=== PATIENT | female | born 1995 | race Caucasian/White ===

== ENCOUNTER 2016-05-16 16:37 | Emergency (ER) | payer OTHER ==
--- NOTE | 2016-05-16 17:46 | ED CLINICAL REPORT ---
Clinical Report - Physicians/Mid Levels [facility] [address] [place] [address] 05/16/2016 16:38 Patient: REESE GRIMES Time Seen: 1700. Arrived- By private vehicle. Historian- patient. HISTORY OF PRESENT ILLNESS Chief Complaint: SORE THROAT. This started just prior to arrival and is still present. Pain described as mild. The patient has had a sore throat. (Sensation of foreign body sore throat over the last few hours, no fevers. No sick contacts, no cough. Has not ate anything sharp, bony in nature, this does not relate to any recent food intake.). REVIEW OF SYSTEMS No fever, cough, difficulty breathing, nausea or diarrhea. No headache or joint pain. All systems otherwise negative, except as recorded above. PAST HISTORY Problems: Anxiety Reaction. Abdominal Pain. LNMP - Last Normal Menstrual Period. Additional Surgeries: no known surgeries. Medications: CloNIDine HCl Oral. Sertraline HCl Oral. Allergies: No Known Drug Allergy. SOCIAL HISTORY Never smoker. Alcohol use. No drug use. ADDITIONAL NOTES The nursing notes have been reviewed. PHYSICAL EXAM Vital Signs: 05/16/2016 17:00 BP: 127/74. HR: 90. RR: 16. O2 saturation: 100%. Temp: 98.9 F. Pain level now: 0/10. Appearance: Alert. Head: Normal external inspection. No mandibular swelling or maxillary swelling. Eyes: Conjunctivae and eyelids normal. ENT: Ears normal. Nose normal. Pharynx normal. Lips normal. No trismus present. Uvula midline. No pharyngeal erythema, tonsillar exudate, peritonsillar mass, muffled or hoarse voice or drooling. No dental decay or purulent nasal discharge. Neck: Trachea midline. No adenopathy. No lymphadenopathy or thyromegaly. CVS: Normal heart rate and rhythm. Heart sounds normal. No cardiac murmur or extra heart sounds. Respiratory: No respiratory distress. Breath sounds normal. Abdomen: Soft. No organomegaly. Skin: Normal skin color. No rash. LABS, X-RAYS, AND EKG Laboratory Tests: Culture, Strep Screen: (BIMAL: 05/16/2016 17:10) ( MsgRcvd 05/16/2016 17:29) Final results Test Result Flag Units (Reference) RAPID STREP SCREEN - THROAT DATE: 05/16/16 NEGATIVE SCREEN: RAPID STREP SCREEN NEGATIVE; CONFIRMATION TO FOLLOW . PROGRESS AND PROCEDURES Course of Care: Patient tolerating by mouth fluid in the ER. She is very stable, afebrile, no lymphadenopathy, no recent sick contacts, rapid strep negative , no h/o mono. Pt with sx over today only. Lungs clear. Patient is stable. Physical exam findings are improved. Symptoms better. Patient/family counseled. Disposition: Discharged. CLINICAL IMPRESSION Acute pharyngitis INSTRUCTIONS Drink plenty of fluids. (salt water rinses/ gargles culture pending for further if any STREP to grow, however rapid STREP negative [facility] candace: ). OTC Medications: Take acetaminophen (Tylenol, Datril, etc.) and ibuprofen (Advil, Nuprin, etc.) according to label instructions. Available over the counter. Follow-up: Follow up with your doctor in three days. (Electronically signed by Sujey Charles P.A.-C 05/16/2016 17:57)
--- NOTE | 2016-05-16 17:46 | ED CLINICAL REPORT ---
Clinical Report - Physicians/Mid Levels [facility] [address] [place] [address] 05/16/2016 16:38 Patient: REESE GRIMES Time Seen: 1700. Arrived- By private vehicle. Historian- patient. HISTORY OF PRESENT ILLNESS Chief Complaint: SORE THROAT. This started just prior to arrival and is still present. Pain described as mild. The patient has had a sore throat. (Sensation of foreign body sore throat over the last few hours, no fevers. No sick contacts, no cough. Has not ate anything sharp, bony in nature, this does not relate to any recent food intake.). REVIEW OF SYSTEMS No fever, cough, difficulty breathing, nausea or diarrhea. No headache or joint pain. All systems otherwise negative, except as recorded above. PAST HISTORY Problems: Anxiety Reaction. Abdominal Pain. LNMP - Last Normal Menstrual Period. Additional Surgeries: no known surgeries. Medications: CloNIDine HCl Oral. Sertraline HCl Oral. Allergies: No Known Drug Allergy. SOCIAL HISTORY Never smoker. Alcohol use. No drug use. ADDITIONAL NOTES The nursing notes have been reviewed. PHYSICAL EXAM Vital Signs: 05/16/2016 17:00 BP: 127/74. HR: 90. RR: 16. O2 saturation: 100%. Temp: 98.9 F. Pain level now: 0/10. Appearance: Alert. Head: Normal external inspection. No mandibular swelling or maxillary swelling. Eyes: Conjunctivae and eyelids normal. ENT: Ears normal. Nose normal. Pharynx normal. Lips normal. No trismus present. Uvula midline. No pharyngeal erythema, tonsillar exudate, peritonsillar mass, muffled or hoarse voice or drooling. No dental decay or purulent nasal discharge. Neck: Trachea midline. No adenopathy. No lymphadenopathy or thyromegaly. CVS: Normal heart rate and rhythm. Heart sounds normal. No cardiac murmur or extra heart sounds. Respiratory: No respiratory distress. Breath sounds normal. Abdomen: Soft. No organomegaly. Skin: Normal skin color. No rash. LABS, X-RAYS, AND EKG Laboratory Tests: Culture, Strep Screen: (BIMAL: 05/16/2016 17:10) ( MsgRcvd 05/16/2016 17:29) Final results Test Result Flag Units (Reference) RAPID STREP SCREEN - THROAT DATE: 05/16/16 NEGATIVE SCREEN: RAPID STREP SCREEN NEGATIVE; CONFIRMATION TO FOLLOW . PROGRESS AND PROCEDURES Course of Care: Patient tolerating by mouth fluid in the ER. She is very stable, afebrile, no lymphadenopathy, no recent sick contacts, rapid strep negative , no h/o mono. Pt with sx over today only. Lungs clear. Patient is stable. Physical exam findings are improved. Symptoms better. Patient/family counseled. Disposition: Discharged. CLINICAL IMPRESSION Acute pharyngitis INSTRUCTIONS Drink plenty of fluids. (salt water rinses/ gargles culture pending for further if any STREP to grow, however rapid STREP negative [facility] candace: ). OTC Medications: Take acetaminophen (Tylenol, Datril, etc.) and ibuprofen (Advil, Nuprin, etc.) according to label instructions. Available over the counter. Follow-up: Follow up with your doctor in three days. (Electronically signed by Sujey Charles P.A.-C 05/16/2016 17:57)
--- NOTE | 2016-05-16 17:46 | ED ORDER SUMMARY ---
..... Patient: REESE GRIMES OrderSheet [facility] VisitID: [id number] [address] [place] [address] 21y, F Registration Date/Time: 05/16/2016 ORDER SHEET Weight: 56.6 kg (stated) Allergies: No Known Drug Allergy GENERAL ORDERS: Culture, Strep Screen Urgent (17:14 05/16/2016 Jeane KinseyAMarcial-C) ([facility] 17:16 ANDREuller) (17:21 Lona R.N.) MEDICATION ORDERS: Dexamethasone PO 8 mg (NOW) (17:38 05/16/2016 Jeane Alexander-Ramya) (17:59 Lona R.N.) IV FLUIDS: ORDER SHEET NOTES: [Electronically signed by Sujey Charles P.A.-C (17:57 05/16/2016)] [Electronically signed by Yuly Gutierrez R.N. (18:05 05/16/2016)] [Electronically locked/signed by Yuly Gutierrez R.N. (18:05 05/16/2016)]
--- NOTE | 2016-05-16 17:46 | ED ORDER SUMMARY ---
..... Patient: REESE GRIMES OrderSheet [facility] VisitID: [id number] [address] [place] [address] 21y, F Registration Date/Time: 05/16/2016 ORDER SHEET Weight: 56.6 kg (stated) Allergies: No Known Drug Allergy GENERAL ORDERS: Culture, Strep Screen Urgent (17:14 05/16/2016 Jeane KinseyAMarcial-C) ([facility] 17:16 ANDREuller) (17:21 Lona R.N.) MEDICATION ORDERS: Dexamethasone PO 8 mg (NOW) (17:38 05/16/2016 Jeane Alexander-Ramya) (17:59 Lona R.N.) IV FLUIDS: ORDER SHEET NOTES: [Electronically signed by Sujey Charles P.A.-C (17:57 05/16/2016)] [Electronically signed by Yuly Gutierrez R.N. (18:05 05/16/2016)] [Electronically locked/signed by Yuly Gutierrez R.N. (18:05 05/16/2016)]
--- NOTE | 2016-05-16 17:46 | ED NURSING NOTES ---
Clinical Report - Nurses [facility] [address] [place] [address] 05/16/2016 16:38 Patient: REESE GRIMES TRIAGE Triage time 17:00. Acuity: LEVEL 4. Chief Complaint: FORIEGN BODY SENSATION IN THROAT and (Onset a few hours ago. Denies URI sx, no fever. No hoarse voice.). 17:05 05/16/16. SEPSIS SCREEN: Sepsis Screen. Negative (no infection suspected/documented). YAHIR COMA SCORE: [place] Coma Scale: 15- eyes open spontaneously (4); best verbal response- oriented x 4 (5); best motor response- obeys commands (6). --17:05 Ky Sommer R.N. 17:00 05/16/16. BP: 127/74. HR: 90. RR: 16. O2 saturation: 100% on room air. Temp: 98.9 F (oral). Pain level now: 0/10. --17:05 Ky Sommer R.N. Weight: 56.6 kg stated. Height/Length: 64 inches Per Patient. BMI: 21.4. --17:03 Ky Sommer R.N. Medications Sertraline HCl Oral. --17:02 Ky Sommer R.N. CloNIDine HCl Oral. --17:02 Ky Sommer R.N. Allergies No Known Drug Allergy. --17:02 Ky Sommer R.N. History Arrived by private vehicle. Historian: patient. This started today. SOCIAL HX: Never smoker. Occasional alcohol use. No drug use. ABUSE ASSESSMENT: No report of abuse. --17:05 Ky Sommer R.N. PROBLEMS: Anxiety Reaction. Abdominal Pain. LNMP - Last Normal Menstrual Period. --17:02 Ky Sommer R.N. ADDITIONAL SURGERIES: no known surgeries. Interventions ID band on patient. To treatment room. --17:05 Ky Sommer R.N. PHYSICAL ASSESSMENT 17:09 05/16/16. Ambulatory to room. GENERAL / NEURO / PSYCH: Alert. Oriented X 4. Appears in no acute distress. HEENT: Pupils equal, round and reactive to light. Pharynx within normal limits. Voice within normal limits. ( enlarged neck glands, able to handle her secretions, able to swallow food & fluids.). Mouth within normal limits upon inspection. No dental injury noted. Mucous membranes are pink. RESPIRATORY: Respirations not labored. CVS: Capillary refill less than 2 seconds. SKIN: Skin is warm and dry. Normal skin turgor. --17:09 Ky Sommer R.N. NURSING PROGRESS NOTES 17:05/16/16. Patient gowned. Head of bed elevated. Reassurance given. Two patient identifiers checked. Call light placed in reach. Bed placed in lowest position. Brakes of bed on. Patient ready for evaluation- chart flagged. --17:09 Ky Sommer R.N. 17:59 05/16/2016 Dexamethasone (Dexamethasone) PO Tablets 8 mg given. Allergies verified and confirmed 5 rights. --17:59 Ky Sommer R.N. DISPOSITION / DISCHARGE 18:05/16/16. Departure time: 18:May 16 2016. Condition at departure: improved and stable. The goals identified in the patient's plan of care were met. No learning barriers present. Reviewed referral to a primary care physician for followup. Patient verbalized understanding. Written instructions provided in Estonian. The patient was discharged home and unaccompanied at time of discharge. She left the Emergency Department ambulatory and via private vehicle. Patient driving. --18:05 Yuly Gutierrez R.N. 18:05 05/16/16. BP: 119/68. HR: 77. RR: 18. O2 saturation: 100%. Temp: 98.1 F. Pain level now 4/10. --18:05 Yuly Gutierrez R.N. Locked/Released at 05/16/2016 18:06 by Yuly Gutierrez R.N.
--- NOTE | 2016-05-16 18:06 | ED MAR SUMMARY ---
..... Medication Administration Record [facility] [address] [place] [address] Patient: REESE GRIMES Visit ID: [id number] 21y, F Weight: 56.6 kg Height/Length: 64 in BMI: 21.4 ALLERGIES: No Known Drug Allergy Given 17:59 05/16/2016 Ky Sommer R.N. Medication Administered: DEXAMETHASONE [PO] (DEXAMETHASONE), Dose: 8 mg Tablets PO. Medication Ordered: Dexamethasone PO 8 mg (NOW).
--- NOTE | 2016-05-16 18:06 | ED MED RECONCILIATION SUMMARY ---
Patient: REESE GRIMES Medication Reconciliation Report [facility] VisitID: [id number] [address] [place] [address] 21y, F Registration Date/Time: 05/16/2016 Weight: 56.6 kg Height/Length: 64 in. BMI: 21.4 ALLERGIES: No Known Drug Allergy The patient's Home Medications are listed below: THE FOLLOWING MEDICATIONS NEED TO BE RECONCILED: CloNIDine HCl Oral Sertraline HCl Oral The source(s) of the original Home Medication information: Not obtained. The following Medications were given to the patient in the Emergency Department: Dexamethasone [PO] PO 8 mg, administered: 05/16/2016 5:59:00 PM The following Medications were prescribed to the patient: Take acetaminophen (Tylenol, Datril, etc.) and ibuprofen (Advil, Nuprin, etc.) according to label instructions. Available over the counter. -- Sujey Charles P.A.-C
--- NOTE | 2016-05-16 18:06 | ED MED RECONCILIATION SUMMARY ---
Patient: REESE GRIMES Medication Reconciliation Report [facility] VisitID: [id number] [address] [place] [address] 21y, F Registration Date/Time: 05/16/2016 Weight: 56.6 kg Height/Length: 64 in. BMI: 21.4 ALLERGIES: No Known Drug Allergy The patient's Home Medications are listed below: THE FOLLOWING MEDICATIONS NEED TO BE RECONCILED: CloNIDine HCl Oral Sertraline HCl Oral The source(s) of the original Home Medication information: Not obtained. The following Medications were given to the patient in the Emergency Department: Dexamethasone [PO] PO 8 mg, administered: 05/16/2016 5:59:00 PM The following Medications were prescribed to the patient: Take acetaminophen (Tylenol, Datril, etc.) and ibuprofen (Advil, Nuprin, etc.) according to label instructions. Available over the counter. -- Sujey Charles P.A.-C
--- NOTE | 2016-05-16 18:06 | ED DISCHARGE INSTRUCTIONS ---
Patient: REESE GRIMES General Instructions [facility] VisitID: [id number] [place] [address] 21y, F Registration Date/Time: 05/16/2016 Acute pharyngitis INSTRUCTIONS Drink plenty of fluids. (salt water rinses/ gargles culture pending for further if any STREP to grow, however rapid STREP negative [facility]: ). OTC Medications: Take acetaminophen (Tylenol, Datril, etc.) and ibuprofen (Advil, Nuprin, etc.) according to label instructions. Available over the counter. Follow-up: Follow up with your doctor in three days. ADDITIONAL INFORMATION Viral Pharyngitis (Sore Throat) Your throat pain is due to an infection called "Viral Pharyngitis", commonly known as "Sore Throat". This is a contagious illness. It is spread through the air by coughing, kissing or by touching others after touching your mouth or nose. Symptoms include throat pain worse with swallowing, aching all over, headache and fever. Unlike strep throat, which is a bacterial infection, this illness does not require treatment with an antibiotic. Home Care: If your symptoms are severe, rest at home for the first 2-3 days. Children: Use acetaminophen (Tylenol) for fever, fussiness or discomfort. In infants over six months of age, you may use ibuprofen (Children's Motrin) instead of Tylenol. [NOTE: If your child has chronic liver or kidney disease or ever had a stomach ulcer or GI bleeding, talk with your kumar doctor before using these medicines.] (Aspirin should never be used in anyone under 18 years of age who is ill with a fever. It may cause severe liver damage.) Adults: You may use acetaminophen (Tylenol) or ibuprofen (Motrin, Advil) to control pain or fever, unless another medicine was prescribed. [NOTE: If you have chronic liver or kidney disease or ever had a stomach ulcer or GI bleeding, talk with your doctor before using these medicines.] Throat lozenges or sprays (Chloraseptic and others) will reduce pain. Gargling with warm salt water will also reduce throat pain. Dissolve 1/2 teaspoon of salt in 1 glass of warm water. This is especially useful just before meals. Follow Up with your doctor or as directed by our staff if you are not improving over the next week. Get Prompt Medical Attention if any of the following occur: Fever over 100.5F (38.0C) oral, or over 101.5F (38.6C) rectal for more than three days New or worsening ear pain, sinus pain or headache Painful lumps in the back of your neck Unable to swallow liquids or open your mouth wide due to throat pain Trouble breathing or noisy breathing Muffled voice New rash You have been given the following additional information: Pharyngitis, Viral (Electronically signed by Sujey Charles P.A.-C 05/16/2016 17:57)
--- NOTE | 2016-05-16 18:06 | ED MAR SUMMARY ---
..... Medication Administration Record [facility] [address] [place] [address] Patient: REESE GRIMES Visit ID: [id number] 21y, F Weight: 56.6 kg Height/Length: 64 in BMI: 21.4 ALLERGIES: No Known Drug Allergy Given 17:59 05/16/2016 Ky Sommer R.N. Medication Administered: DEXAMETHASONE [PO] (DEXAMETHASONE), Dose: 8 mg Tablets PO. Medication Ordered: Dexamethasone PO 8 mg (NOW).
--- NOTE | 2016-05-16 18:06 | ED DISCHARGE INSTRUCTIONS ---
Patient: REESE GRIMES General Instructions [facility] VisitID: [id number] [place] [address] 21y, F Registration Date/Time: 05/16/2016 Acute pharyngitis INSTRUCTIONS Drink plenty of fluids. (salt water rinses/ gargles culture pending for further if any STREP to grow, however rapid STREP negative [facility]: ). OTC Medications: Take acetaminophen (Tylenol, Datril, etc.) and ibuprofen (Advil, Nuprin, etc.) according to label instructions. Available over the counter. Follow-up: Follow up with your doctor in three days. ADDITIONAL INFORMATION Viral Pharyngitis (Sore Throat) Your throat pain is due to an infection called "Viral Pharyngitis", commonly known as "Sore Throat". This is a contagious illness. It is spread through the air by coughing, kissing or by touching others after touching your mouth or nose. Symptoms include throat pain worse with swallowing, aching all over, headache and fever. Unlike strep throat, which is a bacterial infection, this illness does not require treatment with an antibiotic. Home Care: If your symptoms are severe, rest at home for the first 2-3 days. Children: Use acetaminophen (Tylenol) for fever, fussiness or discomfort. In infants over six months of age, you may use ibuprofen (Children's Motrin) instead of Tylenol. [NOTE: If your child has chronic liver or kidney disease or ever had a stomach ulcer or GI bleeding, talk with your kumar doctor before using these medicines.] (Aspirin should never be used in anyone under 18 years of age who is ill with a fever. It may cause severe liver damage.) Adults: You may use acetaminophen (Tylenol) or ibuprofen (Motrin, Advil) to control pain or fever, unless another medicine was prescribed. [NOTE: If you have chronic liver or kidney disease or ever had a stomach ulcer or GI bleeding, talk with your doctor before using these medicines.] Throat lozenges or sprays (Chloraseptic and others) will reduce pain. Gargling with warm salt water will also reduce throat pain. Dissolve 1/2 teaspoon of salt in 1 glass of warm water. This is especially useful just before meals. Follow Up with your doctor or as directed by our staff if you are not improving over the next week. Get Prompt Medical Attention if any of the following occur: Fever over 100.5F (38.0C) oral, or over 101.5F (38.6C) rectal for more than three days New or worsening ear pain, sinus pain or headache Painful lumps in the back of your neck Unable to swallow liquids or open your mouth wide due to throat pain Trouble breathing or noisy breathing Muffled voice New rash You have been given the following additional information: Pharyngitis, Viral (Electronically signed by Sujey Charles P.A.-C 05/16/2016 17:57)
== END 2016-05-16 18:05 | disposition home or self-care (01) ==
LOC: ED SRH 16:37
DX: J02.9 Acute pharyngitis, unspecified (principal)
CPT/HCPCS: 90154; 90159

== ENCOUNTER → 2016-05-30 | Outpatient (CLI) | payer OTHER | LOC: RT SRH 05-27 10:30 | DX: R00.2 Palpitations (principal); R07.9 Chest pain, unspecified ==